=== PATIENT | female | born 1995 | race African-American/Black ===

== ENCOUNTER 2017-04-19 18:57 | Emergency (ER) | payer BC | END 2017-04-19 23:00 | disposition home or self-care (01) | LOC: D.ER 18:57 | DX: K08.89 Other specified disorders of teeth and supporting structures (principal); K05.30 Chronic periodontitis, unspecified ==

== ENCOUNTER 2017-06-16 16:44 | Outpatient (CLI) | payer BC ==
[2017-06-16 18:43] LABS: APPEARANCE CLEAR (CLEAR); BILIRUBIN NEGATIVE (NEGATIVE); COLOR YELLOW (YELLOW); GLUCOSE NEGATIVE (NEGATIVE); KETONE NEGATIVE (NEGATIVE); NITRITE NEGATIVE (NEGATIVE); PH 6.5 (5.0-6.0); PROTEIN NEGATIVE (NEGATIVE); SPECIFIC GRAVITY 1.015 (1.005-1.020); UROBILINOGEN NORMAL (NORMAL)
[2017-06-16 19:00] LABS: UDS - AMPHET NEGATIVE QUAL (NEGATIVE); UDS - BARB NEGATIVE QUAL (NEGATIVE); UDS - BENZO NEGATIVE QUAL (NEGATIVE); UDS - COCAINE NEGATIVE QUAL (NEGATIVE); UDS - OPIATE NEGATIVE QUAL (NEGATIVE); UDS - PCP NEGATIVE QUAL (NEGATIVE); UDS - THC NEGATIVE QUAL (NEGATIVE)
[2017-06-16 19:30] LABS: HEMATOCRIT 28.3 % (36.0-48.0); HEMOGLOBIN 9.2 g/dL (12-16); MCH 25.3 pg (26.0-34.0); MCHC 32.5 g/dL (31.0-37.0); MEAN PLATELET VOLUME 10.7 fL (7.4-10.4); PLATELET COUNT 298 10x3/uL (130-400); RBC 3.63 10x6/uL (4.00-5.40); RDW 14.5 % (11.5-14.5); WBC 10.6 10x3/uL (4.8-10.8)
[2017-06-16 19:32] LABS: FERN TEST NEGATIVE (NEGATIVE)
[2017-06-16 19:44] LABS: HIV 1 & 2- RAPID SCREEN NEGATIVE (NEGATIVE)
[2017-06-18 06:15] LABS: RAPID PLASMA REAGIN Non Reactive (Non Reactive)
[2017-06-18 09:16] LABS: HEPATITIS C ANTIBODY 0.1 (0.0-0.9)
[2017-06-18 15:24] LABS: RUBELLA IGG 1.26 index (Immune >0.99)
[2017-06-21 15:17] LABS: HGB SOLUBILITY (SICKLE SCREEN) Negative (Negative)
== END 2017-06-16 21:39 | disposition home or self-care (01) ==
LOC: D.LDO 16:44
PROVIDERS: Obstetrics & Gynecology
DX: O20.9 Hemorrhage in early pregnancy, unspecified (principal); Z3A.17 17 weeks gestation of pregnancy

== ENCOUNTER → 2017-06-18 10:49 | Outpatient (CLI) | payer BC ==
--- NOTE | ~2017-06-18 | OP ---
PATIENT NAME: LUIS M ONEILL MEDICAL RECORD: [id number] LOCATION:[facility] ADMISSION DATE: SURGEON: AYLIN LOMAS MD DATE OF OPERATION: 06/18/2017 PREDELIVERY DIAGNOSIS: Inevitable at 18 weeks. POSTDELIVERY DIAGNOSIS: Completed at 18 weeks. PROCEDURE: Vaginal delivery of a spontaneous . ATTENDING: Aylin Lomas MD ANESTHESIA: None. FINDINGS: A previable fetus is delivered at 18 weeks. Upon inspection of the peritoneum, placenta was already delivered and the umbilical cord is attached to the infant, which is still in the vagina. Upon vaginal examination, the fetus was noted to be in transverse position. It was verted into a breech presentation and then easily delivered. The uterus was firm and Methergine is given at the close. ESTIMATED BLOOD LOSS: Less than 150 cc. DISPOSITION: Mother recovered on labor and delivery, observed and then will be discharged home when criteria met. TRANSINT:[id number] Voice Confirmation ID: [id number] DOCUMENT ID: [id number] AYLIN LOMAS MD at 1308 CC: [id number] DICTATION DATE: 06/18/17 1343 FAMILY MEDICINE RESIDENT: 06/18/17 1354 DEP CLI 06/18/17 [id number] [place] [id number]
[2017-06-18 11:27] LABS: HCG SERUM POSITIVE (NEGATIVE)
[2017-06-18 11:34] LABS: BASOPHILS 0.1 % (0-2); EOSINOPHILS 0.3 % (0-7); HEMATOCRIT 29.6 % (36.0-48.0); HEMOGLOBIN 9.7 g/dL (12-16); IMMATURE GRANULOCYTES 0.3 % (0-5); LYMPHOCYTES 8.4 % (15-50); MCH 25.5 pg (26.0-34.0); MCHC 32.8 g/dL (31.0-37.0); MCV 77.7 fL (80.0-100.0); MEAN PLATELET VOLUME 9.8 fL (7.4-10.4); MONOCYTES 7.6 % (2-11); NEUTROPHILS 83.3 % (40-80); PLATELET COUNT 261 10x3/uL (130-400); RBC 3.81 10x6/uL (4.00-5.40); RDW 14.5 % (11.5-14.5)
[2017-06-18 11:43] LABS: ALBUMIN 2.8 g/dL (3.4-5.0); ALKALINE PHOSPHATASE 51 U/L (46-116); ALT (SGPT) 12 U/L (10-68); BILIRUBIN - TOTAL 0.32 mg/dL (0.2-1.3); CALC OSMOLALITY 271 mosm/kg (275-300); CALCIUM 8.5 mg/dL (8.5-10.1); CARBON DIOXIDE 20.4 mmol/L (21.0-32.0); CHLORIDE - SERUM 105 mmol/L (98-107); CREATININE - SERUM 0.5 mg/dL (0.6-1.3); GLUCOSE 86 mg/dL (74-106); POTASSIUM - SERUM 3.7 mmol/L (3.5-5.1); PROTEIN - SERUM 7.5 g/dL (6.4-8.2); SODIUM 137 mmol/L (136-145); UREA NITROGEN 10 mg/dL (7-18); eGFR NON AFRICAN AMERICAN > 90 mL/min (90-120)
[2017-06-18 12:07] LABS: HCG - QUANTITATIVE (MATERNAL) 10879 mIU/mL
== END | disposition home or self-care (01) ==
LOC: D.ER 10:49 → D.LDO 10:49 → EDSTATUS 13:14
PROVIDERS: Emergency Medicine
DX: O36.4XX0 Maternal care for intrauterine death, not applicable or unspecified (principal); Z3A.18 18 weeks gestation of pregnancy; Z37.1 Single stillbirth